=== PATIENT | female | born 1995 | race Caucasian/White ===

== ENCOUNTER 2024-05-11 16:59 | Observation (INO) | payer BC ==
[~2024-05-11] VITALS: Ht 157.5 cm; Wt 54.4 kg
[2024-05-11] MEDS ORDERED: LORazepam 1 MG Tab PO ONE (18:50)
[2024-05-11 19:02] LABS: BASOPHILS ABSOLUTE AUTO 0.04 K/mm3 (0.00-0.23); BASOPHILS PERCENT AUTO 0 % (0-2); EOSINOPHILS ABSOLUTE AUTO 0.03 K/mm3 (0.00-0.68); EOSINOPHILS PERCENT AUTO 0 % (0-6); Hematocrit 47.3 % (33.0-51.0); IMMATURE GRAN ABSOLUTE AUTO 0.04 K/mm3 (0.00-0.10); IMMATURE GRAN PERCENT AUTO 0 % (0-1); LYMPHOCYTES ABSOLUTE AUTO 2.37 K/mm3 (0.84-5.20); LYMPHOCYTES PERCENT AUTO 19 % (21-46); MONOCYTES ABSOLUTE AUTO 0.77 K/mm3 (0.16-1.47); MONOCYTES PERCENT AUTO 6 % (4-13); Mean Corpuscular HGB 31.1 pg (26.0-34.0); Mean Corpuscular HGB Conc 33.8 g/dL (31.5-36.5); Mean Corpuscular Volume 92 fL (80-100); Mean Platelet Volume 9.4 fL (9.1-12.4); NEUTROPHILS ABSOLUTE AUTO 9.02 K/mm3 (1.96-9.15); NEUTROPHILS PERCENT AUTO 74 % (41-73); Platelet Count 300 K/mm3 (150-400); RDW Standard Deviation 40.8 fL (35.1-46.3); Red Blood Cell Count 5.15 M/mm3 (3.80-5.20); White Blood Cell Count 12.27 K/mm3 (4.00-11.30)
[2024-05-11 19:39] LABS: Ethanol (Alcohol), Blood, Med <3 mg/dL; Salicylate <1.7 mg/dL (2.8-20.0)
[2024-05-11 20:30] LABS: Source, Urine Clean Catch
[2024-05-11 20:32] LABS: Alanine Aminotransfer (ALT/SGP 25 U/L (12-78); Albumin, Blood 4.1 g/dL (3.4-5.0); Albumin/Globulin Ratio 1.3 (0.8-1.8); Alk Phos 67 U/L (50-136); Anion Gap 8 mmol/L (3-11); Aspartate Aminotrans (AST/SGOT 22 U/L (12-37); Bilirubin, Total 0.3 mg/dL (0.1-1.0); Blood Urea Nitrogen 12 mg/dL (8-24); Bun/Creatinine Ratio 14.2 (12.0-20.0); CO2, Blood 32 mmol/L (21-32); Calcium, Blood 9.4 mg/dL (8.5-10.1); Chloride, Blood 102 mmol/L (98-108); Creatinine, Blood 0.85 mg/dL (0.40-1.00); Globulin, Blood 3.2 g/dL (2.2-4.0); Glomerular Filtration Rate 94 (60-); Glucose, Blood 93 mg/dL (70-99); Potassium, Blood 3.3 mmol/L (3.5-5.5); Sodium, Blood 139 mmol/L (136-145); Total Protein, Blood 7.3 g/dL (6.4-8.2)
[2024-05-11 20:37] LABS: Acetaminophen, Random <2.0 ug/mL (10.0-30.0)
[2024-05-11 20:41] LABS: Appearance, Urine Clear (Clear); Bilirubin, Urine Neg (Neg); Blood, Urine Neg (Neg); Color, Urine Yellow (P-Yellow); Glucose Qualitative, Urine Neg (Neg); Ketones, Urine Neg (Neg); Leukocyte Esterase, Urine Neg (Neg); Nitrite, Urine Neg (Neg); Protein, Urine Neg (Neg); Urobilinogen, Urine NORM (Normal)
[2024-05-11 21:13] LABS: U Amphetamine Screen Not Detected; U Barbituate Screen Not Detected; U Benzodiazapine Screen Not Detected; U Buprenorphine Screen Not Detected; U Cannabinoids Screen DETECTED; U Cocaine Screen Not Detected; U Methadone Screen Not Detected; U Methamphetamine Screen Not Detected; U Opiates Screen Not Detected; U Oxycodone Screen Not Detected; U Phencyclidine Screen Not Detected
[2024-05-11] MEDS ORDERED: Potassium Chloride 10 Meq Tablet SA PO ONE (21:15)
[2024-05-11] MEDS ORDERED: PHARBEDRYL50 M2 PO ×2 (22:34)
== END 2024-05-11 21:44 | disposition other institution (70) ==
LOC: ER 16:59 → EOR 17:00
PROVIDERS: ADMIT Emergency Medicine
DX: F32.A Depression, unspecified (principal); R45.851 Suicidal ideations; E87.6 Hypokalemia
CPT/HCPCS: 80053; 80320; 81003; 81025; 85025; 99285; A9270; G0378; G0480

== ENCOUNTER 2024-05-11 18:24 | Inpatient (IN) | payer BC ==
[~2024-05-11] VITALS: Ht 157.5 cm; Wt 53.3 kg
[2024-05-11 21:56] VITALS: BP 112/80
[2024-05-11] MEDS ORDERED: HydrOXYzine Pamoate 50 MG Cap PO PRN (22:05)
[2024-05-11 22:06] VITALS: BP 112/80
[2024-05-11] MEDS ORDERED: Acetaminophen 325 MG TABLET PO PRN (22:10)
[2024-05-11] MEDS ORDERED: Calcium Carbonate 500 MG Tab Chew PO PRN (22:10)
[2024-05-11] MEDS ORDERED: Aluminum Hydroxide 320MG/5ML 473 ML PO PRN (22:10)
[2024-05-11] MEDS ORDERED: Melatonin 3 MG Tab PO PRN (22:10)
[2024-05-11] MEDS ORDERED: FLU VACC TS2024-25(6MOS UP)/PF 45 MCG/0.5 ML SYRINGE IM ONE (22:10)
[2024-05-11] MEDS ORDERED: Polyethylene Glycol 3350 17 gm PO PRN (22:10)
[2024-05-11] MEDS ORDERED: TraZODone HCl 50 MG Tab PO PRN (22:10)
[2024-05-11] MEDS ORDERED: Ibuprofen 600 MG Tab PO PRN (22:15)
[2024-05-11] MEDS ORDERED: OLANZapine ODT 10 MG Tab MM PRN (22:15)
[2024-05-11] MEDS ORDERED: Ondansetron 4 MG SoluTab MM PRN (22:20)
[2024-05-11] MEDS ORDERED: PHARBEDRYL50 M2 PO ×2 (22:34)
[2024-05-11] MEDS ORDERED: Nicotine Polacrilex 2 MG Gum PO PRN (22:55)
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
--- NOTE | 2024-05-12 06:01 | NUR ---
SHIFT SUMMARY ADMIT AT 2145. VERBALIZED SI THOUGHTS COME AND GO, HAVING THOUGHTS MORE OFTEN LAST FEW WEEKS DUE TO MARRIAGE DIFFICULTY. DENIES HI, OR AVH. AFTER INTAKE QUESTIONS COMPLETE PATIENT MEDICATED PER EMAR AND APPEARS TO BE SLEEPING WELL. RESP EVEN AND UNLABORED. CONTINUE TO MONITOR Q15MIN
[2024-05-12] MEDS ORDERED: LORazepam 1 MG Tab PO PRN (08:40)
[2024-05-12] MEDS ORDERED: DiphenhydrAMINE HCl 50 MG Cap PO PRN ×2 (08:55→11:25)
[2024-05-12] MEDS ORDERED: Multivitamins 1 Tab PO SCH (09:00)
[2024-05-12] MEDS ORDERED: LORazepam 2 MG Tab PO PRN (11:30)
[2024-05-12] MEDS ORDERED: Haloperidol 5 MG Tab PO PRN (11:30)
[2024-05-12] MEDS ORDERED: LamoTRIgine 25 MG Tab PO SCH (12:00)
--- NOTE | 2024-05-12 16:49 | NUR ---
SHIFT SUMMARY PT AA&OX4. PT HAD AN EPISODE OF WAILING THIS MORNING WHEN SHE FIRST WOKE UP. SHE REPORTS ER TOLD HER SHE COULD DISCHARGE WHEN SHE LIKED AND WAS REQUESTING TO GO HOME. MD NOTIFIED ORDERS FOR ATIVAN 1MG TID PRN RECIEVED. PT REPORTS THAT WHEN SHE IS SAD SHE CAN CRY "FOR DAYS" SHE WAS RECEPTIVE TO COACHING AND AGREED SHE WOULD MAKE THE BEST OF HER TIME HERE. SHE DECLINED BREAKFAST, BUT ATE LUNCH. SHE HAS STAYED IN HER ROOM MOST OF THE DAY BUT CAME OUT AND WATCHED TV WITH ENCOURAGEMENT. SHE DENIED SI, AVH. SHE DENIES CURRENT NEEDS. WILL CONTINUE POC
[2024-05-12 20:27] VITALS: BP 106/77
--- NOTE | 2024-05-13 04:12 | NUR ---
Patient is alert and oriented times four. Her affect is very flat and demeanor is sad. Declined PRN Ativan, but took her normal dose of 100mg diphenhydramine at HS and slept all night. Patient declined coming ot into the milieu for snack time. Said she was too tired. No SI,HI or AVH during brief assessment in the evening. Will continue close monitoring every 15 minutes for comfort and safety
[2024-05-13 08:28] VITALS: BP 114/81
--- NOTE | 2024-05-13 16:32 | NUR ---
SHIFT SUMMARY: PT ALERT, ORIENTED AND COOPERATIVE WITH CARE. PT WAS TEARFUL AND C/O ANXIETY THIS AFTERNOON. STATED THAT SHE HAS BEEN IN A FACILITY BEFORE AND WASN'T ABLE TO LEAVE FOR 2 MONTHS. TALKED WITH PT ABOUT HER TREATMENT PLAN AND WHAT TO EXPECT OF HER STAY. PT REQUESTED A PRN FOR ANXIETY. PT MEDICATED PER EMAR. PT LATER STATED THAT SHE WAS FEELING BETTER, RESTING ON HER BED.
[2024-05-13 20:10] VITALS: BP 113/88
--- NOTE | 2024-05-14 05:27 | NUR ---
Patient is pleasant and A&OX4. She was very anxious about not being able to reach her who was out of communication due to the [place]. She denied SI,HI or AVTH at time of evening assessment , and asked for an Ativan to help her with her anxiety. After her HS meds and a snack, Reena went to bed early and slept all night. Will continue close monitoring every 15 minutes for comfort and safety.
[2024-05-14 08:31] VITALS: BP 114/83
[2024-05-14] MEDS ORDERED: Sertraline HCl 50 MG Tab PO SCH (09:00)
--- NOTE | 2024-05-14 17:36 | NUR ---
SHIFT SUMMARY PT [id number]. PLEASANT AND COOPERATIVE WITH CARE. PT HAS DENIED SI/HI AND AVTH THIS SHIFT. SHE HAS BEEN TAKING HER MEDS PRESCRIBED AND ATTENDING MOST [facility] GROUPS TODAY. PT WAS VERY EAGER TO DC THIS AM, REQUESTING TO GO HOME NICK. PT REPORTS FEELING STRESSED THAT SHE IS GOING TO HAVE TO STAY HERE FOR TOO LONG. PT EXPRESSED FEAR THAT HER WILL LOSE HIS JOB IF HE HAS TO CONTINUE STAY HOME WITH THEIR CHILD. PT MET WITH PROVIDER WHO DETERMINED SHE WAS NOT ELIGIBLE FOR DC AT THIS TIME. SHORTLY AFTER, THE PATIENT STARTED LOUDLY CRYING AND YELLING IN HER ROOM. PT TOOK SEVERAL MINUTES TO DE-ESCALATE STATING "THIS WASN'T FAIR AND I WAS TRICKED INTO BEING HERE." PT REPORTS THE PROVIDER SPEAKING CONDESCENDINGLY TO HER. SHE REPORTS THAT THIS MADE HER FEEL MUCH WORSE AND REQUESTS TO NOT SEE THIS PROVIDER ANYMORE. PROVIDED WITH THERAPEUTIC COMMUNICATION AND WAS ABLE TO CALM AFTER SPENDING SOME TIME WITH THIS RN IN THE SENSORY ROOM AND TAKING ANTI ANXIETY MEDICATION. 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 PT'S WAS EXPECTED TO COME IN FOR VISIT THIS AFTERNOON, BUT HAD TO CANCEL LAST MIN DUE TO POOR WEATHER CONDITION TO DRIVE IN. THIS DID SEEM TO TRIGGER THE PATIENT AGAIN AND SHE WENT INTO ANOTHER LOUD UPSET EPISODE OF DISTRESS. THE PATIENT WAS ABLE TO CALM HERSELF QUICKLY THIS TIME WITH A COMBINATION OF USING HER COPING SKILLS, AND TAKING MEDICATIONS TO HELP. THE PATIENT IN CURRENLTY RESTING IN HER BED CALMLY. SHE DENIES ANY NEEDS AT THIS TIME.
--- NOTE | 2024-05-15 04:44 | NUR ---
Dante started out the shift talking to her on the phone, and then getting very tearful again, as she had been on and off most of the day. Ativan given at that time, and patient promptly fell asleep. At 0130, patient came out of room when she was awakened by a loud patient in the linares. 100MG of benedryl (her home dose) was given so she could go back to sleep. Will continue close monitoring every 15 minutes for comfort and safety
[2024-05-15 07:45] VITALS: BP 115/85
[2024-05-15] MEDS ORDERED: LAMO25 PO ×2 (13:42)
[2024-05-15] MEDS ORDERED: SERT25 PO ×2 (13:43)
--- NOTE | 2024-05-15 14:20 | NUR ---
SHIFT SUMMARY/DC NOTE PT IS DISCHARGING HOME TODAY WITH HER . SHE HAS BEEN FOLLOWING HER TREATMENT PLAN INCLUDING TAKING MEDICATIONS PRESCRIBED, ATTENDING [facility] GROUPS AND MINGLING APPROPRIATELY ON WITH STAFF/PEERS ON THE UNIT. DISCHARGE INSTRUCTIONS DISCUSSED WITH PATIENT, INCLUDING FOLLOWING UP WITH OPEN ACCESS THROUGH [facility] FOR ESTABLISHING PSYCHIATRIC CARE AND NEW PCP, DISCHARGE MEDICATIONS AND PATIENT EDUCATION ON DIAGNOSES AND NEW MEDICATIONS. PT VERBALIZED UNDERSTANDING. BELONGS RETURNED BY STAFF. PT'S TRANSPORT ([facility] CRISIS) ARRIVED AT APPROX 1400 AND PATIENT WAS SAFELY ESCORTED OUT OF UNIT.
== END 2024-05-15 14:06 | disposition home or self-care (01) | DRG 885 ==
LOC: BHU 18:24
PROVIDERS: ADMIT Psychiatry & Neurology Psychiatry
DX: F33.2 Major depressive disorder, recurrent severe without psychotic features (principal); R45.851 Suicidal ideations; F60.3 Borderline personality disorder; F43.25 Adjustment disorder with mixed disturbance of emotions and conduct; F41.9 Anxiety disorder, unspecified; Z79.899 Other long term (current) drug therapy; Z79.1 Long term (current) use of non-steroidal anti-inflammatories (NSAID)
CPT/HCPCS: 90656; A9270